=== PATIENT | female | born 1925 | race Caucasian/White ===

== ENCOUNTER 2017-06-18 11:52 | Inpatient (IN) ==
--- NOTE | 2017-06-18 17:15 | Internal Med History&Physical ---
Date of Encounter: 06/18/17 Time of Encounter: 16:48 Assessment and Plan (1) Atrial flutter with rapid ventricular response Current visit: No Status: Acute Ratet now well controlled we will resume current medication (2) Hospital-acquired pneumonia Current visit: No Status: Acute [facility] pneumonia we will continue triple antibiotic vancomycin cefepime and Levaquin will obtain CT of the chest without contrast stress to comfirmm pneumonia and the extent (3) Urinary tract infection Current visit: No Status: Acute Patient was on Rocephin should be adequate treatment at this time Qualifiers: Urinary tract infection type: acute cystitis Hematuria presence: without hematuria Qualified Code(s): N30.00 - Acute cystitis without hematuria (4) Chronic anticoagulation Current visit: No Status: Chronic Patient long-term hums or after (5) Hypertension Current visit: No Status: Chronic Chronic continue current medication Qualifiers: Hypertension type: essential hypertension Qualified Code(s): I10 - Essential (primary) hypertension Internal Medicine - H&P: HPI Chief complaint: transfer from [place] Admitted From: Hospital to Hospital Transfer Plans for Post Hospital Care: Home History of present illness: Ms. Robison is a 89 year old female Patient transfer from [place] due to somnolence and possible pneumonia. Patient with history of hypertension, atrial fibrillation, on anticoagulation was a right total, mild dementia, colon cancer, high cholesterol and high. Patient was admitted there June 16 due to UTI dehydration and lethargy overnight patient developed atrial fibrillation with RVR started on Cardizem drip rate became controlled but continued to be somnolent today she had a temperature 101.3 and hypoxic chest x ray is suggestive of pneumonia patient was then started on cefepime and vancomycin and Levaquin for hospital-acquired pneumonia and then transferred here on arrival Family patient says is more awake and able to respond and answer questions the family patient looks better. 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 for several years no active wheezing Past Med Surg Social Fam HX - Past Medical History Medical history: atrial fibrillation, cancer, dementia, hyperlipidemia, hypertension, other Psychiatric history: depression, other - Past Surgical History Surgical History: appendectomy, colectomy, herniorrhaphy, hysterectomy, orthopedic, other - Social History Smoking Status: Never smoker Smokeless Tobacco Status: No Alcohol use: occasionally Drug use: none - Family History Daughter Living Status: Still Living Hx Family Cardiac Disorders: (unknown) Hx Family Respiratory Disorders: (unknown) Hx Family Cancer: (unknown) Hx Family GI Disorders: (unknown) Hx Family Endocrine Disorder: (unknown) Hx Family Neuromuscular Disorders: (unknown) Hx Family Neurologic Disorders: (unknown) Hx Family HEENT Disorders: (unknown) Hx Family Autoimmune Disorders: (unknown) Internal Medicine - H&P: Meds Aspirin [Lo-Dose Aspirin EC] 81 mg PO DAILY 12/06/15 [History] Atorvastatin [Lipitor] 80 mg PO HS 12/06/15 [History] Citalopram [CeleXA] 20 mg PO DAILY 12/06/15 [History] Multivitamin [Multivitamins] 1 each PO DAILY 12/06/15 [History] Rivaroxaban [Xarelto] 20 mg PO DAILY 12/06/15 [History] Donepezil [Aricept] 5 mg PO HS 12/27/16 [History] Omeprazole [PriLOSEC] 40 mg PO DAILY 06/16/17 [History] Acetaminophen [Tylenol] 650 mg PO Q4HR PRN tablet 06/18/17 [Rx] Cefepime HCl [Maxipime] 2,000 mg IVP Q12H vial 06/18/17 [Rx] Diltiazem CD (24hr) [Cardizem CD] 240 mg PO DAILY cap.er.24h 06/18/17 [Rx] Levofloxacin 750 MG/150 ML [Levaquin Premix 750mg/150 mL] 750 mg IVPB DAILY #1 bag 06/18/17 [Rx] Metoprolol XL (24 HR) Succ [Toprol Xl] 25 mg PO DAILY tab.er.24h 06/18/17 [Rx] Vancomycin [Vancocin] 1,000 mg IVPB Q24H vial 06/18/17 [Rx] 3 Allergy/AdvReac Type Severity Reaction Status Date / Time celecoxib [From Celebrex] Allergy See Verified 01/30/17 01:45 Comments methocarbamol [From Robaxin] Allergy See Verified 01/30/17 01:45 Comments Tetanus Vaccines and Toxoid Allergy Anaphylaxis Verified 01/30/17 01:45 [Tetanus Vaccines & Toxoid] morphine AdvReac Confusion Verified 01/30/17 01:45 All Systems PM: A 10-system review of systems was performed and is negative for pertinent findings except as documented above in the HPI. - Constitutional Constitutional: fatigue, lethargy - EENT Eyes: no change in vision, no discharge, no pain, no photophobia Ears: no ear discharge, no ear pain, no tinnitus Nose, mouth and throat: no dysphagia, no nasal discharge, no neck pain, no sore throat - Cardiovascular Cardiovascular ROS IM: as per HPI, irregular heart rhythm, no chest pain, no diaphoresis, no dyspnea, no lightheadedness, no palpitations, no syncope - Respiratory Respiratory: no cough, no dyspnea, no wheezing, no excessive phlegm production - Gastrointestinal Gastrointestinal: no abdominal pain, no diarrhea, no hematemesis, no hematochezia, no melena, no nausea, no vomiting - Genitourinary Genitourinary: no change in urinary stream, no dysuria, no flank pain, no hematuria - Constitutional Vitals: Temp Pulse Resp BP Pulse Ox 97.6 F 78 16 157/81 93 06/18/17 16:15 06/18/17 16:15 06/18/17 16:15 06/18/17 16:15 06/18/17 16:15 - Eye Eye exam: Present: PERRL, conjuntiva pink, sclera anicteric Pupils: Present: PERRL - Respiratory Respiratory exam: Present: decreased breath sounds, prolonged expiratory phase - Cardiovascular Cardiovascular exam: Present: irregular rhythm, systolic murmur - GI/Abdominal GI/Abdominal exam: Present: normal bowel sounds, soft, no peritoneal signs. Absent: distended, tenderness - Extremities Exam Extremities exam: Present: warm, radial pulses palpable and symmetrical. Absent : calf tenderness, cyanotic, pedal edema
[2017-06-18] MEDS ORDERED: Naloxone 0.4 MG/ML INJ IVP PRN (17:23)
[2017-06-18] MEDS ORDERED: Acetaminophen 325 MG TABLET PO PRN (17:26)
[2017-06-18] MEDS ORDERED: Vancomycin 1,000 MG VIAL IVPB SCH (18:00)
[2017-06-18] MEDS: Cefepime HCl 2,000 MG in Water for inj. (sterile) 20 ML IVP SCH (20:26)
[2017-06-18] MEDS: Acetaminophen 325 MG TABLET PO PRN (20:51)
[2017-06-19 00:27] LABS: Hematocrit 35.7 % (35.3-44.9); Hemoglobin 11.6 g/dL (11.5-15.4); Mean Corpuscular HGB Conc 32.5 g/dL (31.6-35.5); Mean Corpuscular Hemoglobin 29.4 pg (28.0-33.3); Mean Corpuscular Volume 90.4 fL (83.0-100.0); Mean Platelet Volume 9.4 fL (9.4-12.4); Platelet Count 215 K/mcL (140-400); Red Blood Count 3.95 M/mcL (3.82-4.97); Red Cell Distribution Width 14.2 % (11.5-14.5)
[2017-06-19 01:12] LABS: Alanine Aminotransferase 14 Units/L (7-52); Albumin 3.1 g/dL (3.5-5.7); Albumin/Globulin Ratio 1.2 (1.1-2.2); Alkaline Phosphatase 71 Units/L (34-104); Aspartate Amino Transferase 24 Units/L (13-39); BUN/Creatinine Ratio 10 (6-26); Bilirubin,Total 0.6 mg/dL (0.3-1.0); Blood Urea Nitrogen 7 mg/dL (8-23); Calcium 8.7 mg/dL (8.6-10.3); Carbon Dioxide 20 mEq/L (23-29); Chloride 103 mEq/L (98-107); Globulin 2.5 g/dL (2.4-3.5); Glucose 87 mg/dL (70-105); Magnesium 1.1 mg/dL (1.6-2.6); Osmolality,Calculated 271 (280-300); Potassium 3.4 mEq/L (3.5-5.1); Sodium 132 mEq/L (136-145); Total Protein 5.6 g/dL (6.4-8.9); eGFR For African Americans > 60 (> 60); eGFR For Non-African Americans > 60 (> 60)
[2017-06-19] MEDS: Cefepime HCl 2,000 MG in Water for inj. (sterile) 20 ML IVP SCH ×2 (05:04→18:25)
[2017-06-19] MEDS: Multivit/Ca/Min/Fe/FA 1 TAB TABLET PO SCH (07:31)
[2017-06-19] MEDS: Metoprolol XL (24 HR) Succ 25 MG TAB.ER.24H PO SCH (07:32)
[2017-06-19] MEDS: Aspirin Enteric Coated 81 MG Tablet PO SCH (07:32)
[2017-06-19] MEDS: Diltiazem CD (24hr) 240 MG CAPSULE PO SCH (07:32)
[2017-06-19] MEDS ORDERED: NON-FORMULARY MEDICATION 1 EACH EACH (Levofloxacin 750 Mg/150 Ml 750 MG) IVPB SCH (09:00)
[2017-06-19] MEDS ORDERED: Ciprofloxacin OPTH Soln 2.5 ML BOTTLE RIGHT EYE SCH (12:00)
[2017-06-19] MEDS: Ciprofloxacin OPTH Soln 2.5 ML BOTTLE BOTH EYES SCH ×3 (12:38→23:40)
[2017-06-19] MEDS: Acetaminophen 325 MG TABLET PO PRN (12:39)
[2017-06-19] MEDS: Vancomycin 1,000 MG in D5% in Water 250 ML IVPB SCH (12:40)
--- NOTE | 2017-06-19 18:20 | Internal Med Progress Note ---
Date of Encounter: 06/19/17 Time of Encounter: 18:18 - Assessment and plan (1) Sepsis Current Visit: Yes Status: Acute Assessment and plan: Likely UTI and HCAP Presented with SIRS criteria positive for fever and tachycardia. Currently normal HR, afebrile Continue Vancomycin, cefepime, levaquin Follow-up blood cultures. Patient not requiring fluids currently. Qualifiers: Sepsis type: sepsis due to unspecified organism Qualified Code(s): A41.9 - Sepsis, unspecified organism (2) Atrial flutter with rapid ventricular response Current Visit: No Status: Acute Assessment and plan: Likely secondary to sepsis. Rate now controlled Continue Cardizem (3) Hospital-acquired pneumonia Current Visit: No Status: Acute Assessment and plan: as above (4) Urinary tract infection Current Visit: No Status: Acute Assessment and plan: as above Qualifiers: Urinary tract infection type: acute cystitis Hematuria presence: without hematuria Qualified Code(s): N30.00 - Acute cystitis without hematuria (5) Chronic anticoagulation Current Visit: No Status: Chronic (6) Hypertension Current Visit: No Status: Chronic Qualifiers: Hypertension type: essential hypertension Qualified Code(s): I10 - Essential (primary) hypertension - Subjective Interval history: No acute issues, patient has no complaints. Daughter at bedside. - Constitutional Vitals: Temp Pulse Resp BP Pulse Ox 97.8 F 75 17 147/82 97 06/19/17 07:11 06/19/17 07:11 06/19/17 07:11 06/19/17 07:11 06/19/17 07:11 General appearance: Present: A&O X 1 Exam: - Eye Eye exam: Present: PERRL, conjuntiva pink, sclera anicteric Pupils: Present: PERRL - Respiratory Respiratory exam: Present: decreased breath sounds, prolonged expiratory phase - Cardiovascular Cardiovascular exam: Present: irregular rhythm, systolic murmur - GI/Abdominal GI/Abdominal exam: Present: normal bowel sounds, soft, no peritoneal signs. Absent: distended, tenderness - Extremities Exam Extremities exam: Present: warm, radial pulses palpable and symmetrical. Absent : calf tenderness, cyanotic, pedal edema Internal Medicine: Result - Labs CBC & Chem 7: 06/19/17 00:17 06/19/17 00:17 Labs: Short CBC 06/19/17 Range/Units 00:17 WBC 6.0 (4.3-11.1) K/mcL Hgb 11.6 (11.5-15.4) g/dL Hct 35.7 (35.3-44.9) % Plt Count 215 (140-400) K/mcL BMP 06/19/17 00:17 Sodium 132 L Potassium 3.4 L Chloride 103 Carbon Dioxide 20 L BUN 7 L Creatinine 0.70 Glucose 87 Calcium 8.7 Cardiac Enzymes 06/18/17 06/19/17 06/19/17 Range/Units 17:58 00:17 06:08 Troponin I 0.03 0.03 0.03 (< 0.04) ng/mL Liver Function 06/19/17 Range/Units 00:17 Total Bilirubin 0.6 (0.3-1.0) mg/dL AST 24 (13-39) Units/L ALT 14 (7-52) Units/L Alkaline Phosphatase 71 (34-104) Units/L Albumin 3.1 L (3.5-5.7) g/dL - Impressions Impressions Chest CT 06/18/17 17:27 IMPRESSION: 1. Small moderate right and small left pleural effusions. There is adjacent airspace disease, at least partially passive atelectasis, but a component of pneumonia is considered as well. 2. There is mild interlobular septal thickening, and therefore a component of interstitial edema is also likely. D/ / Bert Catherine MD / Bert Catherine MD Interpreting Provider: Bert Catherine MD Consult Discharge Plan - Plan Referrals: Aamir Escobedo MD [Primary Care Provider] -
[2017-06-19] MEDS: *HR* Rivaroxaban 15 MG TABLET PO SCH (18:26)
[2017-06-20] MEDS: Cefepime HCl 2,000 MG in Water for inj. (sterile) 20 ML IVP SCH ×2 (05:23→17:12)
[2017-06-20] MEDS: Ciprofloxacin OPTH Soln 2.5 ML BOTTLE BOTH EYES SCH ×4 (05:23→23:33)
[2017-06-20 06:48] LABS: Basophils # 0.1 K/mcL (0.0-0.2); Basophils % 1.1 %; Eosinophils # 0.2 K/mcL (0.0-0.6); Eosinophils % 2.7 %; Hematocrit 35.3 % (35.3-44.9); Hemoglobin 11.3 g/dL (11.5-15.4); Immature Granulocytes % 0.4 % (0-4); Lymphocytes # 1.4 K/mcL (0.6-4.6); Lymphocytes % 25.2 %; Mean Corpuscular Hemoglobin 28.7 pg (28.0-33.3); Mean Corpuscular Volume 89.6 fL (83.0-100.0); Mean Platelet Volume 10.2 fL (9.4-12.4); Monocytes # 0.4 K/mcL (0.0-1.3); Monocytes % 7.9 %; Neutrophils # 3.5 K/mcL (1.6-8.9); Platelet Count 275 K/mcL (140-400); Red Blood Count 3.94 M/mcL (3.82-4.97); Red Cell Distribution Width 14.5 % (11.5-14.5); Segmented Neutrophils % 62.7 %
[2017-06-20 07:09] LABS: BUN/Creatinine Ratio 12 (6-26); Blood Urea Nitrogen 10 mg/dL (8-23); Calcium 8.9 mg/dL (8.6-10.3); Carbon Dioxide 17 mEq/L (23-29); Chloride 104 mEq/L (98-107); Glucose 82 mg/dL (70-105); Osmolality,Calculated 274 (280-300); Potassium 3.8 mEq/L (3.5-5.1); Sodium 133 mEq/L (136-145); eGFR For African Americans > 60 (> 60); eGFR For Non-African Americans > 60 (> 60)
[2017-06-20] MEDS ORDERED: Levofloxacin 750 MG/150 ML 750 MG/150 ML BAG IVPB SCH (09:00)
[2017-06-20] MEDS: Diltiazem CD (24hr) 240 MG CAPSULE PO SCH (09:40)
[2017-06-20] MEDS: Metoprolol XL (24 HR) Succ 25 MG TAB.ER.24H PO SCH (09:40)
[2017-06-20] MEDS: Aspirin Enteric Coated 81 MG Tablet PO SCH (11:00)
[2017-06-20] MEDS: Multivit/Ca/Min/Fe/FA 1 TAB TABLET PO SCH (11:00)
[2017-06-20] MEDS ORDERED: Furosemide 20 MG/2 ML VIAL IVP ONE (11:32)
[2017-06-20] MEDS: Vancomycin 1,000 MG in D5% in Water 250 ML IVPB SCH (11:55)
[2017-06-20] MEDS: Acetaminophen 325 MG TABLET PO PRN (13:41)
--- NOTE | 2017-06-20 14:13 | Internal Med Progress Note ---
Date of Encounter: 06/20/17 Time of Encounter: 14:11 - Assessment and plan (1) Sepsis Current Visit: Yes Status: Acute Assessment and plan: Likely UTI and HCAP Presented with SIRS criteria positive for fever and tachycardia. Currently normal HR, afebrile Continue Vancomycin, cefepime, levaquin Follow-up blood cultures. Patient not requiring fluids currently. Fever and Tachycardia resolved. Patient fluid overloaded, will diurese with IV lasix and monitor urine output Qualifiers: Sepsis type: sepsis due to unspecified organism Qualified Code(s): A41.9 - Sepsis, unspecified organism (2) Atrial flutter with rapid ventricular response Current Visit: No Status: Acute Assessment and plan: Likely secondary to sepsis. Rate now controlled Continue Cardizem (3) Hospital-acquired pneumonia Current Visit: No Status: Acute Assessment and plan: as above (4) Urinary tract infection Current Visit: No Status: Acute Assessment and plan: as above Qualifiers: Urinary tract infection type: acute cystitis Hematuria presence: without hematuria Qualified Code(s): N30.00 - Acute cystitis without hematuria (5) Chronic anticoagulation Current Visit: No Status: Chronic Assessment and plan: On Xarelto (6) Hypertension Current Visit: No Status: Chronic Qualifiers: Hypertension type: essential hypertension Qualified Code(s): I10 - Essential (primary) hypertension - Subjective Interval history: No acute issues, patient has no complaints. Daughter terrell Hercules is at bedside. - Constitutional Vitals: Temp Pulse Resp BP Pulse Ox 99.8 F H 107 18 137/61 24 06/20/17 13:50 06/20/17 13:50 06/20/17 13:50 06/20/17 13:50 06/20/17 13:50 Exam: General appearance: Present: A&O X 1 Exam: - Eye Eye exam: Present: PERRL, conjuntiva pink, sclera anicteric Pupils: Present: PERRL - Respiratory Respiratory exam: Present: decreased breath sounds, prolonged expiratory phase - Cardiovascular Cardiovascular exam: Present: irregular rhythm, systolic murmur - GI/Abdominal GI/Abdominal exam: Present: normal bowel sounds, soft, no peritoneal signs. Absent: distended, tenderness - Extremities Exam Extremities exam: Present: warm, radial pulses palpable and symmetrical. Absent : calf tenderness, cyanotic, pedal edema Internal Medicine: Result - Labs CBC & Chem 7: 0203/18 06:17 06/20/17 06:17 Labs: Short CBC 06/20/17 Range/Units 06:17 WBC 5.6 (4.3-11.1) K/mcL Hgb 11.3 L (11.5-15.4) g/dL Hct 35.3 (35.3-44.9) % Plt Count 275 (140-400) K/mcL Neutrophils # 3.5 (1.6-8.9) K/mcL BMP 06/20/17 06:17 Sodium 133 L Potassium 3.8 Chloride 104 Carbon Dioxide 17 L BUN 10 Creatinine 0.81 Glucose 82 Calcium 8.9 Consult Discharge Plan - Plan Referrals: Aamir Escobedo MD [Primary Care Provider] -
[2017-06-20] MEDS: *HR* Rivaroxaban 15 MG TABLET PO SCH (17:12)
[2017-06-20 18:18] LABS: Basophils # 0.1 K/mcL (0.0-0.2); Basophils % 1.1 %; Eosinophils # 0.1 K/mcL (0.0-0.6); Eosinophils % 1.8 %; Hematocrit 36.4 % (35.3-44.9); Hemoglobin 11.7 g/dL (11.5-15.4); Immature Granulocytes % 0.3 % (0-4); Lymphocytes # 1.3 K/mcL (0.6-4.6); Lymphocytes % 20.9 %; Mean Corpuscular HGB Conc 32.1 g/dL (31.6-35.5); Mean Corpuscular Hemoglobin 28.5 pg (28.0-33.3); Mean Corpuscular Volume 88.6 fL (83.0-100.0); Mean Platelet Volume 9.9 fL (9.4-12.4); Monocytes # 0.5 K/mcL (0.0-1.3); Monocytes % 8.6 %; Neutrophils # 4.2 K/mcL (1.6-8.9); Platelet Count 286 K/mcL (140-400); Red Blood Count 4.11 M/mcL (3.82-4.97); Red Cell Distribution Width 14.6 % (11.5-14.5); Segmented Neutrophils % 67.3 %
[2017-06-20 18:47] LABS: Potassium 3.8 mEq/L (3.5-5.1)
[2017-06-20] MEDS ORDERED: 0.9 % Sodium Chloride 1,000 ML IVC SCH (19:00)
--- NOTE | 2017-06-20 22:31 | Event Note ---
Date of Encounter: 06/20/17 Time of Encounter: 20:40 Called by pts. nurse to 2A51 d/t code status change conversation w/pts. daughters. Patient has had declining mental status over the past several days with worsening AMS today according to pts. daughters. 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 Pts. daughters are unaware of fall causing head trauma to cause edema/hemorrhage. Pt. does not speak and does not recognize daughters in her presence. Responds/shows alarm to loud noises that occur from the hallway. Discussion w/pts. two daughters (joint POAs ) regarding code status change and their wishes for further imaging (MRI of head ) and/or possible transfer of pt. to larger facility for neurological work-up and possible surgical intervention. Daughters stated they want their mother to be made comfortable w/no extraordinary measures. DNRCCA versus DNRCC explained to both and they both voiced understanding and confirmed their wishes of code status change to DNRCC. Pts. daughters wish Palliative Care to take over their mother's care. Palliative Care consult ordered and pts. code status changed to DNRCC at 22:17.
[2017-06-21 06:15] LABS: Basophils # 0.1 K/mcL (0.0-0.2); Basophils % 1.1 %; Eosinophils # 0.1 K/mcL (0.0-0.6); Eosinophils % 1.8 %; Hematocrit 33.3 % (35.3-44.9); Hemoglobin 10.4 g/dL (11.5-15.4); Immature Granulocytes % 0.2 % (0-4); Lymphocytes # 1.3 K/mcL (0.6-4.6); Lymphocytes % 23.6 %; Mean Corpuscular HGB Conc 31.2 g/dL (31.6-35.5); Mean Corpuscular Hemoglobin 28.1 pg (28.0-33.3); Mean Platelet Volume 10.4 fL (9.4-12.4); Monocytes # 0.5 K/mcL (0.0-1.3); Neutrophils # 3.7 K/mcL (1.6-8.9); Platelet Count 264 K/mcL (140-400); Red Cell Distribution Width 14.6 % (11.5-14.5); Segmented Neutrophils % 64.3 %
[2017-06-21] MEDS: Cefepime HCl 2,000 MG in Water for inj. (sterile) 20 ML IVP SCH (06:28)
[2017-06-21] MEDS: Ciprofloxacin OPTH Soln 2.5 ML BOTTLE BOTH EYES SCH ×4 (06:29→23:30)
[2017-06-21 06:31] LABS: Calcium 8.7 mg/dL (8.6-10.3); Potassium 3.9 mEq/L (3.5-5.1)
--- NOTE | 2017-06-21 07:43 | Palliative - Consult Note ---
Date of Encounter: 06/21/17 Time of Encounter: 07:35 - Assessment and Plan (1) CVA (cerebral vascular accident) Current Visit: Yes Status: Acute Assessment and plan: CT scan shows collections of fluid whic are epidural in nature. Is no trauma to accountfor this. There was a CT scan done in [place] which did not show anything per the family no agressive hterapy is desired for this will watch Qualifiers: CVA mechanism: unspecified Qualified Code(s): I63.9 - Cerebral infarction, unspecified (2) Mental status alteration Current Visit: Yes Status: Acute Assessment and plan: The this to be a delirium it is multifocal including exercise as well as central nervous system disturbance as noted on the CT scan. Opted against any intervention, I am waiting to discuss with them. We will start the patient on milligrams Ativan when necessary every couple of hours and 2.5 mg oxycodone every 4 hours as the patient startle reflex may very well be secondary to pain. I did notice a tolerance to morphine the "causes confusion" as the patient is already massively confused I do not believe a small dose of oxycodone will make any significant difference to this. I believe the Ativan will probably be more effective. Will discuss further with family when they are available. Qualifiers: Altered mental status type: delirium Qualified Code(s): R41.0 - Disorientation, unspecified (3) Urinary tract infection Current Visit: No Status: Acute Assessment and plan: hsopitalist b [place] mostly infectious is sthe factors that account for the change in mental staus plan to cont present therapy Qualifiers: Urinary tract infection type: acute cystitis Hematuria presence: without hematuria Qualified Code(s): N30.00 - Acute cystitis without hematuria (4) Atrial flutter with rapid ventricular response Current Visit: No Status: Acute Assessment and plan: plan per hospitalist team (5) Hospital-acquired pneumonia Current Visit: No Status: Acute Assessment and plan: continue antibiotics for a couple of more days plan per hsopitalist team Palliative-CN HPI - Data of Consult Requesting Physician: Xiao Nelson MD Primary Care Provider: Aamir Escobedo MD - Consult Narrative History of present illness: Ms. Robison is a 89 year old female Nonverbal at this time no family is present currently history is from the medical record. Patient was admitted for hospital-acquired pneumonia and UTI with sirs criteria being met. Patient transfer from [place] due to somnolence and possible pneumonia. Patient with history of hypertension, atrial fibrillation, on anticoagulation was a right total, mild dementia, colon cancer, high cholesterol and high. Patient was admitted there June 16 due to UTI dehydration and lethargy overnight patient developed atrial fibrillation with RVR started on Cardizem drip rate became controlled but continued to be somnolent today she had a temperature 101.3 and hypoxic chest x ray is suggestive of pneumonia patient was then started on cefepime and vancomycin and Levaquin for hospital-acquired pneumonia and then transferred here on arrival F Per the request for palliative consultation during the night last night patient had had a change in a declining mental status. CT scan showed the focal subgaleal edema versus hemorrhage with patchy areas of small vessel ischemic change. He was unaware of any possible fall that might of caused head trauma. He was very sensitive to any kind of loud noises in the hallway. Discussion regarding transfer larger facility and workup for possible surgical intervention family decided against all this wishes to have palliative care involved for her care only. We will talk to family when they are available. CC: Xiao Nelson MD Past Med Surg Social Fam HX - Past Medical History Medical history: atrial fibrillation, cancer, dementia, hyperlipidemia, hypertension, other Psychiatric history: depression, other - Past Surgical History Surgical History: appendectomy, colectomy, herniorrhaphy, hysterectomy, orthopedic, other - Social History Smoking Status: Never smoker Smokeless Tobacco Status: No Alcohol use: occasionally Drug use: none - Family History Daughter Living Status: Still Living Hx Family Cardiac Disorders: (unknown) Hx Family Respiratory Disorders: (unknown) Hx Family Cancer: (unknown) Hx Family GI Disorders: (unknown) Hx Family Endocrine Disorder: (unknown) Hx Family Neuromuscular Disorders: (unknown) Hx Family Neurologic Disorders: (unknown) Hx Family HEENT Disorders: (unknown) Hx Family Autoimmune Disorders: (unknown) Medications and Allergies Aspirin [Lo-Dose Aspirin EC] 81 mg PO DAILY 12/06/15 [History] Atorvastatin [Lipitor] 80 mg PO HS 12/06/15 [History] Citalopram [CeleXA] 20 mg PO DAILY 12/06/15 [History] Multivitamin [Multivitamins] 1 each PO DAILY 12/06/15 [History] Rivaroxaban [Xarelto] 20 mg PO DAILY 12/06/15 [History] Donepezil [Aricept] 5 mg PO HS 12/27/16 [History] Omeprazole [PriLOSEC] 40 mg PO DAILY 06/16/17 [History] Acetaminophen [Tylenol] 650 mg PO Q4HR PRN tablet 06/18/17 [Rx] Cefepime HCl [Maxipime] 2,000 mg IVP Q12H vial 06/18/17 [Rx] Levofloxacin 750 MG/150 ML [Levaquin Premix 750mg/150 mL] 750 mg IVPB DAILY #1 bag 06/18/17 [Rx] Metoprolol XL (24 HR) Succ [Toprol Xl] 25 mg PO DAILY tab.er.24h 06/18/17 [Rx] Vancomycin [Vancocin] 1,000 mg IVPB Q24H vial 06/18/17 [Rx] Diltiazem CD (24hr) [Cardizem CD] 180 mg PO BID 06/19/17 [History] Lisinopril [Zestril] 10 mg PO DAILY 06/19/17 [History] hydroCHLOROthiazide [Hydrochlorothiazide] 1 tab PO DAILY 06/19/17 [History] 3 Allergy/AdvReac Type Severity Reaction Status Date / Time celecoxib [From Celebrex] Allergy See Verified 01/30/17 01:45 Comments methocarbamol [From Robaxin] Allergy See Verified 01/30/17 01:45 Comments Tetanus Vaccines and Toxoid Allergy Anaphylaxis Verified 01/30/17 01:45 [Tetanus Vaccines & Toxoid] morphine AdvReac Confusion Verified 01/30/17 01:45 ROS unobtainable: due to mental status Palliative Care-Exam - Constitutional Vitals: Temp Pulse Resp BP Pulse Ox 100.7 F H 98 20 109/84 93 06/20/17 23:56 06/20/17 23:56 06/20/17 23:56 06/20/17 23:56 06/20/17 23:56 General appearance: Present: mild distress (Easily startled) - Head Head Exam: Present: atraumatic, normal inspection - Eye Eye exam: Present: normal appearance - Respiratory Respiratory exam: Present: decreased breath sounds - Cardiovascular Cardiovascular exam: Present: irregular rhythm - GI/Abdominal Exam GI/Abdominal exam: Present: normal bowel sounds, soft. Absent: tenderness - Extremities Exam Extremities exam: Present: normal inspection. Absent: pedal edema, tenderness - Neurological Exam Neurological exam: Present: altered - Psychiatric Psychiatric exam: Present: agitated, anxious - Skin Skin exam: Present: dry, warm Internal Medicine - CN: Reslt - Labs CBC & Chem 7: 06/21/17 05:40 06/21/17 05:40 Labs: Short CBC 06/20/17 06/21/17 Range/Units 18:05 05:40 WBC 6.3 5.7 (4.3-11.1) K/mcL Hgb 11.7 10.4 L (11.5-15.4) g/dL Hct 36.4 33.3 L (35.3-44.9) % Plt Count 286 264 (140-400) K/mcL Neutrophils # 4.2 3.7 (1.6-8.9) K/mcL BMP 06/20/17 06/21/17 18:05 05:40 Sodium 134 L 138 Potassium 3.8 3.9 Chloride 103 108 H Carbon Dioxide 21 L 17 L BUN 15 17 Creatinine 1.45 H 1.44 H Glucose 106 H 93 Calcium 9.0 8.7 Cardiac Enzymes 06/20/17 Range/Units 18:05 Troponin I 0.04 H* (< 0.04) ng/mL - Impressions Impressions Head CT 06/20/17 17:37 IMPRESSION: Multifocal subgaleal edema versus hemorrhage is noted Patchy areas of small vessel ischemic change bilaterally 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 D/ / Jose Alejandro Luna / Jose Alejandro Luna Interpreting Provider: Jose Alejandro Luna Consult Discharge Plan - Plan Referrals: Aamir Escobedo MD [Primary Care Provider] - Palliative Quality Palliative Quality: Screen for Code Status: Yes, Screen for Goals of Care: Yes, Screen for Pain: Yes, If Pain Regimen Started, Initiate Bowel Regimen: Yes, Screen for Nausea/Vomitting: Yes Code Status: 06/18/17 17:23 Resuscitation Status: Active [RES] Routine Comment: Resuscitation Status: Full Code 06/20/17 22:17 DNR [Resuscitation Status: Active] [RES] Routine Comment: Resuscitation Status: DNR-Comfort Care
[2017-06-21] MEDS ORDERED: OxyCODONE CONC 5 MG/0.25 ML ORAL.SYG PO PRN (08:03)
[2017-06-21] MEDS ORDERED: OxyCODONE CONC 5 MG/0.25 ML ORAL.SYG SL PRN (08:06)
[2017-06-21] MEDS: Diltiazem CD (24hr) 240 MG CAPSULE PO SCH (08:29)
[2017-06-21] MEDS: Multivit/Ca/Min/Fe/FA 1 TAB TABLET PO SCH (08:29)
[2017-06-21] MEDS: Metoprolol XL (24 HR) Succ 25 MG TAB.ER.24H PO SCH (08:29)
[2017-06-21] MEDS: *HR* LORazepam 2 MG/ML VIAL IVP PRN ×2 (08:33→11:51)
[2017-06-21] MEDS ORDERED: Aminoglycoside Consult 1 EACH MC ONE (09:15)
[2017-06-21] MEDS ORDERED: Acetaminophen 650 MG RECTAL SUPP RC PRN (10:50)
[2017-06-21] MEDS ORDERED: Acetaminophen IV 1,000 MG/100 ML INFUS..BTL IVPB ONE (11:13)
[2017-06-21] MEDS: *HR* Metoprolol 5 MG/5 ML VIAL IVP PRN ×2 (11:19→20:12)
[2017-06-21] MEDS ORDERED: Azithromycin 500 MG in D5% in Water 250 ML IVPB SCH (12:00)
[2017-06-21] MEDS: Vancomycin 1,000 MG in D5% in Water 250 ML IVPB SCH (12:54)
--- NOTE | 2017-06-21 13:36 | Internal Med Progress Note ---
Date of Encounter: 06/21/17 Time of Encounter: 13:32 - Assessment and plan (1) Sepsis Current Visit: Yes Status: Acute Assessment and plan: Likely UTI and HCAP Presented with SIRS criteria positive for fever and tachycardia. Currently normal HR, afebrile Continue Vancomycin, cefepime, levaquin Follow-up blood cultures. Patient not requiring fluids currently. Fever and Tachycardia resolved. Patient fluid overloaded, will diurese with IV lasix and monitor urine output 06/21 13:[address] head findings with radiologist today over the phone. There is good change the subgleal edema vs hemorrhage is artifact, which would be more consistent with patient's history. Qualifiers: Sepsis type: sepsis due to unspecified organism Qualified Code(s): A41.9 - Sepsis, unspecified organism (2) Atrial flutter with rapid ventricular response Current Visit: No Status: Acute Assessment and plan: Likely secondary to sepsis. Returned today with HR in 130s. Possibly worsening sepsis vs missing Cardizem dose (unable to tolerate orals because of mental status) - Add Lopressor 5 mg IV Q6H prn tachycardia. - Continue Cardizem once patient if tolerate PO (3) Hospital-acquired pneumonia Current Visit: No Status: Acute Assessment and plan: as above (4) Urinary tract infection Current Visit: No Status: Acute Assessment and plan: as above Qualifiers: Urinary tract infection type: acute cystitis Hematuria presence: without hematuria Qualified Code(s): N30.00 - Acute cystitis without hematuria (5) Chronic anticoagulation Current Visit: No Status: Chronic Assessment and plan: On Xarelto (6) Hypertension Current Visit: No Status: Chronic Qualifiers: Hypertension type: essential hypertension Qualified Code(s): I10 - Essential (primary) hypertension - Subjective Interval history: Patient had change in behavior yesterday with apperant agitation and less responsive to her daughters and overall daughters felt that is she is not acting right. Workup yesterday included a repeat CT head that showed multifocal subgaleal edema versus hemorrhage. Today I discussed with radiology that this is benign findings and likely artifact. No intracranial bleed. She had rigors this morning with generalized discomfort. - Constitutional Vitals: Temp Pulse Resp BP Pulse Ox 101 F H 132 26 119/80 93 06/21/17 12:51 06/21/17 11:16 06/21/17 11:16 06/21/17 11:16 06/21/17 11:16 General appearance: Present: A&O X 1 Exam: - Eye Eye exam: Present: PERRL, conjuntiva pink, sclera anicteric Pupils: Present: PERRL - Respiratory Respiratory exam: Present: decreased breath sounds, prolonged expiratory phase - Cardiovascular Cardiovascular exam: Present: irregular rhythm, systolic murmur - GI/Abdominal GI/Abdominal exam: Present: normal bowel sounds, soft, no peritoneal signs. Absent: distended, tenderness - Extremities Exam Extremities exam: Present: warm, radial pulses palpable and symmetrical. Absent : calf tenderness, cyanotic, pedal edema Internal Medicine: Result - Labs CBC & Chem 7: 06/21/17 05:40 06/21/17 05:40 Labs: Short CBC 06/20/17 06/21/17 Range/Units 18:05 05:40 WBC 6.3 5.7 (4.3-11.1) K/mcL Hgb 11.7 10.4 L (11.5-15.4) g/dL Hct 36.4 33.3 L (35.3-44.9) % Plt Count 286 264 (140-400) K/mcL Neutrophils # 4.2 3.7 (1.6-8.9) K/mcL BMP 06/20/17 06/21/17 18:05 05:40 Sodium 134 L 138 Potassium 3.8 3.9 Chloride 103 108 H Carbon Dioxide 21 L 17 L BUN 15 17 Creatinine 1.45 H 1.44 H Glucose 106 H 93 Calcium 9.0 8.7 Cardiac Enzymes 06/20/17 Range/Units 18:05 Troponin I 0.04 H* (< 0.04) ng/mL - Impressions Impressions Head CT 06/20/17 17:37 IMPRESSION: Multifocal subgaleal edema versus hemorrhage is noted Patchy areas of small vessel ischemic change bilaterally 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 D/ / Jose Alejandro uLna / Jose Alejandro Luna Interpreting Provider: Jose Alejandro Luna Consult Discharge Plan - Plan Referrals: Aamir Escobedo MD [Primary Care Provider] -
[2017-06-22] MEDS: *HR* LORazepam 2 MG/ML VIAL IVP PRN ×2 (01:44→08:38)
[2017-06-22] MEDS ORDERED: Cefepime HCl 2,000 MG in Water for inj. (sterile) 20 ML IVP SCH ×2 (06:00→08:00)
[2017-06-22 06:01] LABS: Basophils # 0.1 K/mcL (0.0-0.2); Basophils % 0.7 %; Eosinophils % 0.2 %; Hematocrit 35.2 % (35.3-44.9); Hemoglobin 11.2 g/dL (11.5-15.4); Immature Granulocytes % 0.5 % (0-4); Lymphocytes # 1.5 K/mcL (0.6-4.6); Mean Corpuscular HGB Conc 31.8 g/dL (31.6-35.5); Mean Corpuscular Hemoglobin 28.6 pg (28.0-33.3); Mean Corpuscular Volume 89.8 fL (83.0-100.0); Mean Platelet Volume 10.5 fL (9.4-12.4); Monocytes # 0.7 K/mcL (0.0-1.3); Monocytes % 6.6 %; Neutrophils # 7.8 K/mcL (1.6-8.9); Platelet Count 324 K/mcL (140-400); Red Blood Count 3.92 M/mcL (3.82-4.97); Red Cell Distribution Width 14.8 % (11.5-14.5)
[2017-06-22] MEDS: Ciprofloxacin OPTH Soln 2.5 ML BOTTLE BOTH EYES SCH ×3 (06:37→18:20)
[2017-06-22 06:42] LABS: Calcium 8.9 mg/dL (8.6-10.3); Potassium 4.2 mEq/L (3.5-5.1)
[2017-06-22] MEDS ORDERED: 0.9 % Sodium Chloride 1,000 ML IVC SCH (08:00)
[2017-06-22] MEDS ORDERED: Cefepime HCl 2,000 MG in D5% in Water (Mini-Bag+) 100 ML IVPB SCH (08:00)
[2017-06-22] MEDS: Multivit/Ca/Min/Fe/FA 1 TAB TABLET PO SCH (08:35)
[2017-06-22] MEDS: Metoprolol XL (24 HR) Succ 25 MG TAB.ER.24H PO SCH (08:36)
[2017-06-22] MEDS ORDERED: Cefepime HCl 2,000 MG in Water for inj. (sterile) 20 ML 10 ML IVP SCH (08:45)
--- NOTE | 2017-06-22 08:53 | Palliative Progress Note ---
Date of Encounter: 06/22/17 Time of Encounter: 08:50 - Assessment and plan (1) Anxiety Current Visit: Yes Status: Acute Assessment and plan: Patient was started on IV Lorazepam. She has utilized 4 doses over past 24 hours. She does awaken easily and although nonverbal, does appears very anxious. Continue and monitor (2) Generalized pain Current Visit: Yes Status: Acute Assessment and plan: Continue low dose Oxycodone - has utilized x1 last 24 hours. (3) Goals of care, counseling/discussion Current Visit: Yes Status: Acute Assessment and plan: No family here at present. Will continue to follow clinical course. Mental status not improved thus far. (4) Atrial fibrillation with RVR Current Visit: No Status: Inactive (5) Urinary tract infection Current Visit: No Status: Acute Qualifiers: Urinary tract infection type: acute cystitis Hematuria presence: without hematuria Qualified Code(s): N30.00 - Acute cystitis without hematuria - Time Spent With Patient Total time spent is greater than 50% in coordination of care (as documented) at patient's floor/unit and/or counseling patient: 25 - 35 minutes - Subjective Interval history: Patient resting with eyes closed. Awakens with stimulation, but only making unintelligible noises and appears anxious. Does not follow commands. Per nursing, pt has not had oral intake and not able to take oral medications. Remains on Cardizem drip. No family is present - Constitutional Vitals: Abnormal lab results Hgb 11.2 g/dL (11.5-15.4) L 06/22/17 05:44 Hct 35.2 % (35.3-44.9) L 06/22/17 05:44 RDW 14.8 % (11.5-14.5) H 06/22/17 05:44 Carbon Dioxide 19 mEq/L (23-29) L 06/22/17 05:44 Creatinine 1.62 mg/dL (0.60-1.20) H 06/22/17 05:44 Est GFR ( Amer) 36 (> 60) L 06/22/17 05:44 Est GFR (Non-Af Amer) 30 (> 60) L 06/22/17 05:44 POC Glucose 112 (58-89) H 06/20/17 17:50 Magnesium 1.1 mg/dL (1.6-2.6) L 06/19/17 00:17 Troponin I 0.04 ng/mL (< 0.04) H* 06/20/17 18:05 B-Natriuretic Peptide 141 pg/mL (Less than 100) H 06/19/17 00:17 Serum Total Protein 5.6 g/dL (6.4-8.9) L 06/19/17 00:17 Albumin 3.1 g/dL (3.5-5.7) L 06/19/17 00:17 General appearance: Present: mild distress - Respiratory Respiratory exam: Present: decreased breath sounds, CTAB Additional comments: Shallow inspiratory effort - Cardiovascular Cardiovascular exam: Present: irregular rhythm - GI/Abdominal GI/Abdominal exam: Present: normal bowel sounds, soft - Extremities Exam Extremities exam: Present: normal capillary refill, normal inspection Additional comments: Scabbed areas noted right lower arm - Neurological Exam Additional comments: Patient non verbal - make noises when awakened, but does not open eyes for me or follow commands. - Skin Skin exam: Present: dry, pallor, warm Palliative Quality Palliative Quality: Screen for Code Status: Yes, Screen for Goals of Care: Yes, Screen for Pain: Yes, If Pain Regimen Started, Initiate Bowel Regimen: Yes, Screen for Nausea/Vomitting: Yes Code Status: 06/18/17 17:23 Resuscitation Status: Active [RES] Routine Comment: Resuscitation Status: Full Code 06/20/17 22:17 DNR [Resuscitation Status: Active] [RES] Routine Comment: Resuscitation Status: DNR-Comfort Care - Labs CBC & Chem 7: 06/22/17 05:44 06/22/17 05:44 Labs: Laboratory Results - last 24 hr 06/20/17 06/21/17 06/22/17 17:50 12:00 05:44 WBC 10.1 D RBC 3.92 Hgb 11.2 L Hct 35.2 L MCV 89.8 MCH 28.6 MCHC 31.8 RDW 14.8 H Plt Count 324 MPV 10.5 Immature Gran % 0.5 Seg Neutrophils % 77.0 Lymphocytes % 15.0 Monocytes % 6.6 Eosinophils % 0.2 Basophils % 0.7 Neutrophils # 7.8 Lymphocytes # 1.5 Monocytes # 0.7 Eosinophils # 0.0 Basophils # 0.1 Sodium Potassium Chloride Carbon Dioxide BUN Creatinine Est GFR ( Amer) Est GFR (Non-Af Amer) BUN/Creatinine Ratio Glucose POC Glucose 112 H Calculated Osmolality Calcium Vancomycin Trough 13.4 06/22/17 05:44 WBC RBC Hgb Hct MCV MCH MCHC RDW Plt Count MPV Immature Gran % Seg Neutrophils % Lymphocytes % Monocytes % Eosinophils % Basophils % Neutrophils # Lymphocytes # Monocytes # Eosinophils # Basophils # Sodium 137 Potassium 4.2 Chloride 107 Carbon Dioxide 19 L BUN 21 Creatinine 1.62 H Est GFR ( Amer) 36 L Est GFR (Non-Af Amer) 30 L BUN/Creatinine Ratio 13 Glucose 98 POC Glucose Calculated Osmolality 287 Calcium 8.9 Vancomycin Trough Consult Discharge Plan - Plan Referrals: Aamir Escobedo MD [Primary Care Provider] -
--- NOTE | 2017-06-22 09:12 | Internal Med Progress Note ---
Date of Encounter: 06/22/17 Time of Encounter: 09:10 - Assessment and plan (1) Sepsis Current Visit: Yes Status: Acute Assessment and plan: Likely UTI and HCAP Presented with SIRS criteria positive for fever and tachycardia. Currently normal HR, afebrile Continue Vancomycin, cefepime, levaquin Follow-up blood cultures. Patient not requiring fluids currently. Fever and Tachycardia resolved. Patient will get judicious iv fluid hydration. Poor prognosis, Palliative, discussed goals of care. No aggressive measures, patient currently Comfort care. 06/21 13:[address] head findings with radiologist today over the phone. There is good change the subgleal edema vs hemorrhage is artifact, which would be more consistent with patient's history. Qualifiers: Sepsis type: sepsis due to unspecified organism Qualified Code(s): A41.9 - Sepsis, unspecified organism (2) Atrial flutter with rapid ventricular response Current Visit: No Status: Acute Assessment and plan: - Likely secondary to worsening sepsis, UTI and pneumonia - Now worsening because patient unable to take PO Cardizem and Lopressor home medications - Started on Cardizem drip overnight - If can have PO, will resume home medications. (3) Hospital-acquired pneumonia Current Visit: No Status: Acute Assessment and plan: as above (4) Urinary tract infection Current Visit: No Status: Acute Assessment and plan: as above Qualifiers: Urinary tract infection type: acute cystitis Hematuria presence: without hematuria Qualified Code(s): N30.00 - Acute cystitis without hematuria (5) Chronic anticoagulation Current Visit: No Status: Chronic Assessment and plan: On Xarelto (6) Hypertension Current Visit: No Status: Chronic Assessment and plan: Patient is normotensive but borderline tachycardic, likely from sepsis. She is NPO she is not able to handle PO at this moment because of mental status. Qualifiers: Hypertension type: essential hypertension Qualified Code(s): I10 - Essential (primary) hypertension (7) Hypomagnesemia Current Visit: Yes Status: Acute Assessment and plan: Will replace and recheck tomorrow. (8) DVT prophylaxis Current Visit: Yes Status: Acute Assessment and plan: Xarelto was held for suspicion of bleed. No signs of acute bleed, will discuss with daughters if they would like to resume or hold. - Subjective Interval history: This AM patient is resting comfortably. She wa placed on a cardizem drip overnight for HR getting as high as 130s. After starting drip she is in 90-110 range. - Constitutional Vitals: Temp Pulse Resp BP Pulse Ox 98.8 F 94 20 108/67 96 06/22/17 06:38 06/22/17 06:38 06/22/17 06:38 06/22/17 06:38 06/22/17 06:38 Exam: Somnolent, not in distress. Patient arouses to verbal and some tactile stimuli. Resting peacefully. - Respiratory Respiratory exam: Present: decreased breath sounds, CTAB, rales - Cardiovascular Cardiovascular exam: Present: tachycardia - Extremities Exam Extremities exam: Present: warm, radial pulses palpable and symmetrical. Absent : calf tenderness, cyanotic, pedal edema - Skin Skin exam: Present: dry, warm Internal Medicine: Result - Labs CBC & Chem 7: 06/22/17 05:44 06/22/17 05:44 Labs: Short CBC 06/22/17 Range/Units 05:44 WBC 10.1 D (4.3-11.1) K/mcL Hgb 11.2 L (11.5-15.4) g/dL Hct 35.2 L (35.3-44.9) % Plt Count 324 (140-400) K/mcL Neutrophils # 7.8 (1.6-8.9) K/mcL BMP 06/22/17 05:44 Sodium 137 Potassium 4.2 Chloride 107 Carbon Dioxide 19 L BUN 21 Creatinine 1.62 H Glucose 98 Calcium 8.9 Consult Discharge Plan - Plan Referrals: Aamir Escobedo MD [Primary Care Provider] -
[2017-06-22] MEDS: *HR* Metoprolol 5 MG/5 ML VIAL IVP PRN (10:10)
[2017-06-22] MEDS ORDERED: *HR* LORazepam Oral Conc 2 MG/ML SL PRN (11:31)
[2017-06-22] MEDS ORDERED: OxyCODONE CONC 5 MG/0.25 ML ORAL.SYG SL PRN (11:59)
[2017-06-22] MEDS ORDERED: Vancomycin 1,250 MG in D5% in Water 250 ML IVPB SCH (12:00)
--- NOTE | 2017-06-22 12:29 | Event Note ---
Date of Encounter: 06/22/17 Time of Encounter: 12:00 Met with family - pt has lost IV access. Discussed goals of care. They state she has continued to decline despite 10-11 days of IV antibiotics. Both daughters feel that pt would not to be prolonged in this state. Discussed hospice care at length - and they would like to proceed. Patient appears distressed today - pain and anxiety medications have been adjusted. She may qualify for GIP a couple of days for symptom management. Daughters determining hospice agency of choice and will notify me this afternoon.
[2017-06-22] MEDS: OXYCODONE Oral CONC 10 MG/0.5 ML ORAL.SYG SL PRN ×2 (14:37→18:21)
[2017-06-22] MEDS ORDERED: MetroNIDAZOLE 500 MG/100 ML 500 MG/100 ML BAG IVPB SCH (16:00)
[2017-06-22 19:02] VITALS: BP 90/59
[2017-06-23] MEDS: Ciprofloxacin OPTH Soln 2.5 ML BOTTLE BOTH EYES SCH ×3 (01:24→11:51)
--- NOTE | 2017-06-23 11:14 | Palliative Progress Note ---
Date of Encounter: 06/23/17 Time of Encounter: 09:20 - Assessment and plan (1) CVA (cerebral vascular accident) Current Visit: Yes Status: Acute Assessment and plan: The patient has showed no progression wards recovery. Family now wishes to switch patient over to inpatient hospice. We will do so. No further workup will be done. Qualifiers: CVA mechanism: unspecified Qualified Code(s): I63.9 - Cerebral infarction, unspecified (2) Mental status alteration Current Visit: Yes Status: Acute Assessment and plan: Probably multifactorial in nature certainly the CT scan of the night impacts this, however likely cause is still sepsis secondary to the pneumonia and urinary tract infections. IV has now been lost no further antibiotics can be pursued in the patient's conclude GIP hospice. Qualifiers: Altered mental status type: delirium Qualified Code(s): R41.0 - Disorientation, unspecified (3) Urinary tract infection Current Visit: No Status: Acute Assessment and plan: IV access has been lost. Family does not wish to pursue any further antibiotics anyway. Qualifiers: Urinary tract infection type: acute cystitis Hematuria presence: without hematuria Qualified Code(s): N30.00 - Acute cystitis without hematuria (4) Atrial flutter with rapid ventricular response Current Visit: No Status: Acute Assessment and plan: Comfort measures only at this point. (5) Hospital-acquired pneumonia Current Visit: No Status: Acute - Time Spent With Patient Total time spent is greater than 50% in coordination of care (as documented) at patient's floor/unit and/or counseling patient: - Subjective Interval history: pt is non verbal today per family no improvement since sun wish for hospice trasition today - Constitutional Vitals: Abnormal lab results Hgb 11.2 g/dL (11.5-15.4) L 06/22/17 05:44 Hct 35.2 % (35.3-44.9) L 06/22/17 05:44 RDW 14.8 % (11.5-14.5) H 06/22/17 05:44 Carbon Dioxide 19 mEq/L (23-29) L 06/22/17 05:44 Creatinine 1.62 mg/dL (0.60-1.20) H 06/22/17 05:44 Est GFR ( Amer) 36 (> 60) L 06/22/17 05:44 Est GFR (Non-Af Amer) 30 (> 60) L 06/22/17 05:44 POC Glucose 98 (58-89) H 06/22/17 23:41 Magnesium 1.1 mg/dL (1.6-2.6) L 06/19/17 00:17 Troponin I 0.04 ng/mL (< 0.04) H* 06/20/17 18:05 B-Natriuretic Peptide 141 pg/mL (Less than 100) H 06/19/17 00:17 Serum Total Protein 5.6 g/dL (6.4-8.9) L 06/19/17 00:17 Albumin 3.1 g/dL (3.5-5.7) L 06/19/17 00:17 Procalcitonin 0.18 ng/mL (<=0.10) H 06/19/17 09:57 General appearance: Present: no acute distress - Head Head exam: Present: atraumatic, normal inspection - Eye Eye exam: Absent: normal appearance (Crusting is noted both eyes) - ENT ENT exam: Present: mucous membranes moist - Respiratory Respiratory exam: Present: decreased breath sounds - Cardiovascular Cardiovascular exam: Present: irregular rhythm, tachycardia - GI/Abdominal GI/Abdominal exam: Present: hypoactive bowel sounds, soft. Absent: tenderness - Extremities Exam Extremities exam: Absent: tenderness - Neurological Exam Neurological exam: Present: altered - Skin Skin exam: Present: dry, warm Palliative Quality Palliative Quality: Screen for Code Status: Yes, Screen for Goals of Care: Yes, Screen for Pain: Yes, If Pain Regimen Started, Initiate Bowel Regimen: Yes, Screen for Nausea/Vomitting: Yes Code Status: 06/18/17 17:23 Resuscitation Status: Active [RES] Routine Comment: Resuscitation Status: Full Code 06/20/17 22:17 DNR [Resuscitation Status: Active] [RES] Routine Comment: Resuscitation Status: DNR-Comfort Care - Labs CBC & Chem 7: 06/22/17 05:44 06/22/17 05:44 Labs: Laboratory Results - last 24 hr 06/22/17 06/22/17 06/22/17 11:12 15:54 19:09 POC Glucose 99 H 99 H 93 H 06/22/17 23:41 POC Glucose 98 H Consult Discharge Plan - Plan Referrals: Aamir Escobedo MD [Primary Care Provider] -
[2017-06-23] MEDS: OXYCODONE Oral CONC 10 MG/0.5 ML ORAL.SYG SL PRN (11:52)
--- NOTE | 2017-06-23 12:01 | Discharge Summary ---
Date of Encounter: 06/23/17 Time of Encounter: 11:59 - Discharge Diagnosis (1) CVA (cerebral vascular accident) Priority: Primary Status: Ruled-out Qualifiers: CVA mechanism: unspecified Qualified Code(s): I63.9 - Cerebral infarction, unspecified (2) Hypomagnesemia Priority: Primary Status: Acute (3) Sepsis Priority: Primary Status: Acute Qualifiers: Sepsis type: sepsis due to unspecified organism Qualified Code(s): A41.9 - Sepsis, unspecified organism (4) Atrial flutter with rapid ventricular response Priority: Primary Status: Chronic (5) Hospital-acquired pneumonia Priority: Primary Status: Acute (6) Urinary tract infection Priority: Primary Status: Acute Qualifiers: Urinary tract infection type: acute cystitis Hematuria presence: without hematuria Qualified Code(s): N30.00 - Acute cystitis without hematuria (7) Hypertension Priority: Secondary Status: Chronic Qualifiers: Hypertension type: essential hypertension Qualified Code(s): I10 - Essential (primary) hypertension (8) Paroxysmal atrial fibrillation Priority: Secondary Status: Chronic - Discharge Medications Home Medications: Aspirin [Lo-Dose Aspirin EC] 81 mg PO DAILY 12/06/15 [History] Atorvastatin [Lipitor] 80 mg PO HS 12/06/15 [History] Citalopram [CeleXA] 20 mg PO DAILY 12/06/15 [History] Multivitamin [Multivitamins] 1 each PO DAILY 12/06/15 [History] Rivaroxaban [Xarelto] 20 mg PO DAILY 12/06/15 [History] Donepezil [Aricept] 5 mg PO HS 12/27/16 [History] Omeprazole [PriLOSEC] 40 mg PO DAILY 06/16/17 [History] Acetaminophen [Tylenol] 650 mg PO Q4HR PRN tablet 06/18/17 [Rx] Cefepime HCl [Maxipime] 2,000 mg IVP Q12H vial 06/18/17 [Rx] Levofloxacin 750 MG/150 ML [Levaquin Premix 750mg/150 mL] 750 mg IVPB DAILY #1 bag 06/18/17 [Rx] Metoprolol XL (24 HR) Succ [Toprol Xl] 25 mg PO DAILY tab.er.24h 06/18/17 [Rx] Vancomycin [Vancocin] 1,000 mg IVPB Q24H vial 06/18/17 [Rx] Diltiazem CD (24hr) [Cardizem CD] 180 mg PO BID 06/19/17 [History] Lisinopril [Zestril] 10 mg PO DAILY 06/19/17 [History] hydroCHLOROthiazide [Hydrochlorothiazide] 1 tab PO DAILY 06/19/17 [History] Haloperidol Oral Conc [Haldol] 2 mg SL Q6H #30 mls 06/24/17 [Rx] LORazepam Oral Conc [Ativan Oral Conc] 1 mg PO Q4H 7 Days #30 mls 06/24/17 [Rx] OXYCODONE Oral CONC [Oxycodone Oral Conc] 5 mg PO Q2H 5 Days #30 ml 06/24/17 [Rx ] Allergies/Adverse Reactions: 3 Allergy/AdvReac Type Severity Reaction Status Date / Time celecoxib [From Celebrex] Allergy See Verified 01/30/17 01:45 Comments methocarbamol [From Robaxin] Allergy See Verified 01/30/17 01:45 Comments Tetanus Vaccines and Toxoid Allergy Anaphylaxis Verified 01/30/17 01:45 [Tetanus Vaccines & Toxoid] morphine AdvReac Confusion Verified 01/30/17 01:45 Procedures/tests Complete & Pending: Procedures Performed prior 72 hours Category Date Time Status Head CT without Contrast [CT head/brain wo con] [CT] Cat Scan 06/20/17 17:37 Completed Stat Date of admission: 06/18/17 15:51 Primary care physician: Aamir Escobedo MD Consults: 06/19/17 10:41 Consult to Physical Therapy [CONS] Routine Comment: Evaluate, develop and implement POC Reason for Consult: weakness 06/19/17 10:46 Consult to Occupational Therapy [CONS] Routine Comment: Evaluate, develop and implement POC Reason for Consult: weakness 06/20/17 22:18 Consult to Palliative Care [CONS] Routine Comment: Consulting Provider: [facility]iative [facility] Reason for Consult: Patient has had declining mental status over the past several days with worsening AMS today according to pts. daughters. 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 Pts. daughters are unaware of fall causing head trauma to cause edema/hemorrhage. Pt. does not speak and does not recognize daughters in her presence. Responds/shows alarm to loud noises that occur from the hallway. Discussion w/ pts. two daughters (joint POAs) regarding code status change and their wishes for further imaging (MRI of head) and/or possible transfer of pt. to larger facility for neurological work-up and possible surgical intervention. Daughters stated they want their mother to be made comfortable w/no extraordinary measures. DNRCCA versus DNRCC explained to both and they both voiced understanding and confirmed their wishes of code status change to DNRCC. Pts. daughters wish Palliative Care to take over their mother's care. Call Completed: No Discharging clinician: Eunice Mooney Anticipated date of discharge: 06/23/17 - Patient Status Disposition: Hospice - Medical Facility Condition: Serious Functional capacity at discharge: bed bound Overall status at discharge: patient is not back to baseline - Discharge Instructions Follow Up With: Aamir Escobedo MD [Primary Care Provider] - Hospital course: Ms. Robison is a 89 year old female with the above medical problems including dementia, was transferred from [facility], due to worsening lethargy and somnolence. Patient was initially admitted with UTI and dehydration and gradually developed atrial fibrillation with rapid ventricular response and sepsis. She was treated for possible UTI and pneumonia with broad-spectrum IV antibiotics. Blood cultures remained negative, urine culture was noted to be grossly contaminated. Patient continue to have atrial fibrillation with rapid ventricular response, could not tolerate oral medications, was maintained with IV Lopressor as needed. Patient was noted to have worsening mental status and became more confused and disoriented, not recognizing family members during her hospitalization. CT head was done which showed multifocal subgaleal edema versus hemorrhage. Case was discussed by the [facility] hospitalist with the radiologist and these findings were deemed artifactual. Patient is noted to have poor prognosis, not responding well to antibiotics, with continued tachycardia and encephalopathy. At this time, patient's family desired no further aggressive care. Palliative care was consulted and patient is being transferred to inpatient hospice with comfort care measures. Plan of care was explained to the patient's daughters at bedside, who are in agreement with this plan. - Time Spent with Patient Total time spent providing and/or coordinating discharge services: Greater than 30 minutes (40 min) - Constitutional Vitals: Temp Pulse Resp BP Pulse Ox 100.1 F H 131 28 90/59 91 06/22/17 18:44 06/22/17 18:44 06/22/17 18:44 06/22/17 18:44 06/22/17 18:44 General appearance: Present: A&O X 0 (noted to be startled by touch, cannot answer questions/communicate) - Cardiovascular Cardiovascular exam: Present: RRR, +S1, +S2, tachycardia. Absent: diastolic murmur, gallop, rubs, systolic murmur
[2017-06-24 08:10] LABS: Mycoplasma pneumoniae IgG 0.05 U/L (<=0.09)
== END 2017-06-23 13:15 | disposition hospice, inpatient (51) | DRG 871 ==
LOC: 2ANU 15:51 → SUATTDRO 15:51
PROVIDERS: ADMIT Internal Medicine Cardiovascular Disease; ATTEND Internal Medicine

== ENCOUNTER 2017-06-23 09:59 | Inpatient (IN) ==
[2017-06-23] MEDS ORDERED: Haloperidol Oral Conc 10 MG/5 ML UDC PO PRN (11:03)
[2017-06-23] MEDS ORDERED: OxyCODONE CONC 5 MG/0.25 ML ORAL.SYG SL PRN (11:03)
[2017-06-23] MEDS ORDERED: Atropine Sulfate 1% 40 DROP/2 ML BOTTLE SL PRN (11:03)
[2017-06-23] MEDS ORDERED: Bisacodyl 10 MG RECTAL SUPPOSITORY RC PRN (11:03)
[2017-06-23] MEDS ORDERED: Acetaminophen 650 MG RECTAL SUPP RC PRN (11:03)
[2017-06-23] MEDS ORDERED: Ondansetron ODT 4 MG TAB.RAPDIS SL PRN (11:03)
[2017-06-23] MEDS ORDERED: Albuterol 2.5 MG/3 ML NEBULIZER IH PRN (11:03)
--- NOTE | 2017-06-23 11:19 | Pallative History & Physical ---
Date of Encounter: 06/23/17 Time of Encounter: 09:45 Assessment and Plan (1) Anxiety Status: Acute Well-controlled with current medications will continue sublingual medications. Patient is now general inpatient hospice (2) CVA (cerebral vascular accident) Status: Acute Unclear whether this actually represents a true dural hematoma or not. CT scan was a little inconclusive in regards to that., however the family did not wish to have any further workup done. He case given the overall condition of the patient it is doubtful anything would have been done with it. At this point no further workup will be entertained. Qualifiers: CVA mechanism: unspecified Qualified Code(s): I63.9 - Cerebral infarction, unspecified (3) Generalized pain Status: Acute Sublingual pain medications are written for. General inpatient hospice (4) Goals of care, counseling/discussion Status: Acute DNR comfort care. Patient is now general inpatient hospice plan will be for trying for return home tomorrow. Patient will be Endep today to get all the stuff together for tomorrow, or permitting the patient will be discharged in the morning. At this time a believe the patient is stable enough to transport home, however this may change (5) Mental status alteration Status: Acute Metabolic encephalopathy secondary to either CVA infection or both. This is the patient's terminal diagnosis. Mental status has markedly changed since the patient came in the hospital continues to decline. This therefore the patient is being admitted to general inpatient hospice. Qualifiers: Altered mental status type: delirium Qualified Code(s): R41.0 - Disorientation, unspecified (6) Sepsis Status: Acute Qualifiers: Sepsis type: sepsis due to unspecified organism Qualified Code(s): A41.9 - Sepsis, unspecified organism Internal Medicine - H&P: HPI Admitted From: Intrahospital Transfer Plans for Post Hospital Care: Hospice - Home History of present illness: Ms. Robison is a 89 year old female Patient being transitioned to general inpatient hospice after having been hospitalized for Janeth tract infection, hospital-acquired pneumonia, atrial fibrillation with rapid ventricular response. Since admission the patient is headed down work course in terms of mental status on Thursday approximately 3 days ago extradural fluid collections were noted on a CT scan. It will status has continued to decline to the point the patient is no longer responsive at all except to noxious stimuli. Discussed with family on [place] decided to give it a couple more days of IV antibiotics. IV access was lost yesterday the patient has not responded any case. At this point the family wishes Comfort measures only and the patient transitioned to [facility] hospice. He is not seem to have much in the way of pain but has responded well to medications. We will see transitioned to [facility] hospice today. Patient is unresponsive but does appear comfortable at this time. Past Med Surg Social Fam HX - Past Medical History Medical history: atrial fibrillation, cancer, dementia, hyperlipidemia, hypertension, other Psychiatric history: depression, other - Past Surgical History Surgical History: appendectomy, colectomy, herniorrhaphy, hysterectomy, orthopedic, other - Social History Smoking Status: Never smoker Smokeless Tobacco Status: No Alcohol use: occasionally Drug use: none - Family History Daughter Living Status: Still Living Hx Family Cardiac Disorders: (unknown) Hx Family Respiratory Disorders: (unknown) Hx Family Cancer: (unknown) Hx Family GI Disorders: (unknown) Hx Family Endocrine Disorder: (unknown) Hx Family Neuromuscular Disorders: (unknown) Hx Family Neurologic Disorders: (unknown) Hx Family HEENT Disorders: (unknown) Hx Family Autoimmune Disorders: (unknown) Internal Medicine - H&P: Meds Aspirin [Lo-Dose Aspirin EC] 81 mg PO DAILY 12/06/15 [History] Atorvastatin [Lipitor] 80 mg PO HS 12/06/15 [History] Citalopram [CeleXA] 20 mg PO DAILY 12/06/15 [History] Multivitamin [Multivitamins] 1 each PO DAILY 12/06/15 [History] Rivaroxaban [Xarelto] 20 mg PO DAILY 12/06/15 [History] Donepezil [Aricept] 5 mg PO HS 12/27/16 [History] Omeprazole [PriLOSEC] 40 mg PO DAILY 06/16/17 [History] Acetaminophen [Tylenol] 650 mg PO Q4HR PRN tablet 06/18/17 [Rx] Cefepime HCl [Maxipime] 2,000 mg IVP Q12H vial 06/18/17 [Rx] Levofloxacin 750 MG/150 ML [Levaquin Premix 750mg/150 mL] 750 mg IVPB DAILY #1 bag 06/18/17 [Rx] Metoprolol XL (24 HR) Succ [Toprol Xl] 25 mg PO DAILY tab.er.24h 06/18/17 [Rx] Vancomycin [Vancocin] 1,000 mg IVPB Q24H vial 06/18/17 [Rx] Diltiazem CD (24hr) [Cardizem CD] 180 mg PO BID 06/19/17 [History] Lisinopril [Zestril] 10 mg PO DAILY 06/19/17 [History] hydroCHLOROthiazide [Hydrochlorothiazide] 1 tab PO DAILY 06/19/17 [History] 3 Allergy/AdvReac Type Severity Reaction Status Date / Time celecoxib [From Celebrex] Allergy See Verified 01/30/17 01:45 Comments methocarbamol [From Robaxin] Allergy See Verified 01/30/17 01:45 Comments Tetanus Vaccines and Toxoid Allergy Anaphylaxis Verified 01/30/17 01:45 [Tetanus Vaccines & Toxoid] morphine AdvReac Confusion Verified 01/30/17 01:45 ROS unobtainable: due to mental status Palliative Care-Exam - Head Head Exam: Present: atraumatic, normal inspection - Eye Eye exam: Absent: normal appearance (Sting is noted on both eyes.) - ENT ENT exam: Present: mucous membranes moist - Respiratory Respiratory exam: Present: decreased breath sounds - Cardiovascular Cardiovascular exam: Present: irregular rhythm, tachycardia - GI/Abdominal Exam GI/Abdominal exam: Present: diminished bowel sounds, soft. Absent: tenderness - Catheter Type: Urethral ([place]) - Neurological Exam Neurological exam: Present: altered - Psychiatric Psychiatric exam: Absent: agitated, anxious - Skin Skin exam: Present: dry, warm Palliative Quality Palliative Quality: Screen for Code Status: Yes, Screen for Goals of Care: Yes, Screen for Pain: Yes, If Pain Regimen Started, Initiate Bowel Regimen: Yes, Screen for Nausea/Vomitting: Yes Code Status: 06/23/17 11:03 Resuscitation Status: Active [RES] Stat Resuscitation Status: DNR-Comfort Care Comment:
--- NOTE | 2017-06-23 11:25 | Event Note ---
Date of Encounter: 06/23/17 Time of Encounter: 11:23 Hospice medical orderly certification of terminal illness: Hospice benefit. Start: 06/23/2017 Hospice benefit. In: +90 days Palliative performance scale: 20 percent History: Patient with history of hospital-acquired pneumonia urinary tract infection A. fib with RVR and Airola vent which may very well be a small epidural hematoma for which the family did not wish to have the patient further evaluated. I will status is continued to decline despite aggressive use of antibiotics as metabolic encephalopathy which has made her unable to speak, as well as taken any kind of nutrition. At this point the IVs have been lost and family does not wish to pursue any further treatment of the infections therefore I believe that-These findings support a life expectancy of 6 months or less I attest that I have compose the above narrative based on my review of the patient's medical records, and or on my examination of the patient. Aamir Arrieta M.D. [employer] medical laboratory technicians. [facility]
[2017-06-23] MEDS: Ciprofloxacin OPTH Soln 2.5 ML BOTTLE BOTH EYES SCH ×3 (12:00→23:50)
[2017-06-23] MEDS: *HR* LORazepam Oral Conc 2 MG/ML SL PRN ×2 (15:46→23:53)
[2017-06-23] MEDS: OXYCODONE Oral CONC 10 MG/0.5 ML ORAL.SYG SL PRN (17:07)
[2017-06-24] MEDS: Ciprofloxacin OPTH Soln 2.5 ML BOTTLE BOTH EYES SCH ×4 (04:14→20:25)
--- NOTE | 2017-06-24 07:15 | Palliative Progress Note ---
Date of Encounter: 06/24/17 Time of Encounter: 07:05 - Assessment and plan (1) Anxiety Current Visit: No Status: Acute Assessment and plan: Well-controlled with current medications will continue sublingual medications. Patient is now general inpatient hospice (2) CVA (cerebral vascular accident) Current Visit: No Status: Ruled-out Assessment and plan: Unclear whether this actually represents a true dural hematoma or not. CT scan was a little inconclusive in regards to that., however the family did not wish to have any further workup done. He case given the overall condition of the patient it is doubtful anything would have been done with it. At this point no further workup will be entertained. Qualifiers: CVA mechanism: unspecified Qualified Code(s): I63.9 - Cerebral infarction, unspecified (3) Generalized pain Current Visit: No Status: Acute Assessment and plan: Sublingual pain medications are written for. General inpatient hospice Seems to be very little generalized pain at this point a meds are written for. (4) Goals of care, counseling/discussion Current Visit: No Status: Acute Assessment and plan: DNR comfort care. Patient is now general inpatient hospice plan will be for trying for return home tomorrow. Patient will be general inpatient today to get all the stuff together for tomorrow, or permitting the patient will be discharged in the morning. At this time a believe the patient is stable enough to transport home, however this may change Weather makes transport home rehabilitation status at this time. I do not believe the patient is stable enough kind of transport the weather would require. We will plan for discharge tomorrow due to patient's safety concerns. (5) Mental status alteration Current Visit: No Status: Acute Assessment and plan: Metabolic encephalopathy secondary to either CVA infection or both. This is the patient's terminal diagnosis. Mental status has markedly changed since the patient came in the hospital continues to decline. This therefore the patient is being admitted to general inpatient hospice. Qualifiers: Altered mental status type: delirium Qualified Code(s): R41.0 - Disorientation, unspecified (6) Sepsis Current Visit: No Status: Acute Assessment and plan: Patient is now running what appears to be terminal fevers. I believe the patient is down to hours to days maybe weeks. Further aggressive care is being undertaken. Patient is overall comfortable but very tachycardic her pressure is somewhat better today with the patient is running terminal fevers at this point in time and due to the weather believe the transport home today is a good idea in terms of overall patient's safety. Plan on delaying discharge until tomorrow. Qualifiers: Sepsis type: sepsis due to unspecified organism Qualified Code(s): A41.9 - Sepsis, unspecified organism - Time Spent With Patient Total time spent is greater than 50% in coordination of care (as documented) at patient's floor/unit and/or counseling patient: - Subjective Interval history: non responsive to voice per ns no problems overnight bp is better - Constitutional General appearance: Present: no acute distress - Head Head exam: Present: atraumatic, normal inspection - Eye Eye exam: Present: normal appearance (Less crusty) - ENT ENT exam: Present: mucous membranes dry - Respiratory Respiratory exam: Present: decreased breath sounds - Cardiovascular Cardiovascular exam: Present: irregular rhythm, tachycardia - GI/Abdominal GI/Abdominal exam: Present: normal bowel sounds, soft. Absent: tenderness - Extremities Exam Extremities exam: Absent: tenderness - Psychiatric Psychiatric exam: Absent: agitated, anxious - Skin Skin exam: Present: dry, warm Palliative Quality Palliative Quality: Screen for Code Status: Yes, Screen for Goals of Care: Yes, Screen for Pain: Yes, If Pain Regimen Started, Initiate Bowel Regimen: Yes, Screen for Nausea/Vomitting: Yes Code Status: 06/23/17 11:03 Resuscitation Status: Active [RES] Stat Comment: Resuscitation Status: DNR-Comfort Care Consult Discharge Plan - Plan Referrals: Aamir Escobedo MD [Primary Care Provider] -
[2017-06-24] MEDS: OXYCODONE Oral CONC 10 MG/0.5 ML ORAL.SYG SL PRN ×2 (11:52→17:51)
[2017-06-25] MEDS: OXYCODONE Oral CONC 10 MG/0.5 ML ORAL.SYG SL PRN ×2 (01:44→10:48)
[2017-06-25] MEDS: Ciprofloxacin OPTH Soln 2.5 ML BOTTLE BOTH EYES SCH (05:38)
[2017-06-25 08:31] VITALS: BP 79/51
--- NOTE | 2017-06-25 10:16 | Discharge Summary ---
Date of Encounter: 06/25/17 Time of Encounter: 07:25 - Discharge Diagnosis (1) Sepsis Priority: Primary Status: Acute Qualifiers: Sepsis type: sepsis due to unspecified organism Qualified Code(s): A41.9 - Sepsis, unspecified organism (2) Anxiety Priority: Secondary Status: Acute (3) CVA (cerebral vascular accident) Priority: Secondary Status: Ruled-out Qualifiers: CVA mechanism: unspecified Qualified Code(s): I63.9 - Cerebral infarction, unspecified (4) Generalized pain Priority: Secondary Status: Acute (5) Goals of care, counseling/discussion Priority: Secondary Status: Acute (6) Mental status alteration Priority: Primary Status: Acute Qualifiers: Altered mental status type: delirium Qualified Code(s): R41.0 - Disorientation, unspecified - Discharge Medications Prescriptions: Haloperidol Oral Conc [Haldol] 2 mg SL Q6H #30 mls LORazepam Oral Conc [Ativan Oral Conc] 1 mg PO Q4H 7 Days #30 mls OXYCODONE Oral CONC [Oxycodone Oral Conc] 5 mg PO Q2H 5 Days #30 ml Home Medications: Aspirin [Lo-Dose Aspirin EC] 81 mg PO DAILY 12/06/15 [History] Atorvastatin [Lipitor] 80 mg PO HS 12/06/15 [History] Citalopram [CeleXA] 20 mg PO DAILY 12/06/15 [History] Multivitamin [Multivitamins] 1 each PO DAILY 12/06/15 [History] Rivaroxaban [Xarelto] 20 mg PO DAILY 12/06/15 [History] Donepezil [Aricept] 5 mg PO HS 12/27/16 [History] Omeprazole [PriLOSEC] 40 mg PO DAILY 06/16/17 [History] Acetaminophen [Tylenol] 650 mg PO Q4HR PRN tablet 06/18/17 [Rx] Cefepime HCl [Maxipime] 2,000 mg IVP Q12H vial 06/18/17 [Rx] Levofloxacin 750 MG/150 ML [Levaquin Premix 750mg/150 mL] 750 mg IVPB DAILY #1 bag 06/18/17 [Rx] Metoprolol XL (24 HR) Succ [Toprol Xl] 25 mg PO DAILY tab.er.24h 06/18/17 [Rx] Vancomycin [Vancocin] 1,000 mg IVPB Q24H vial 06/18/17 [Rx] Diltiazem CD (24hr) [Cardizem CD] 180 mg PO BID 06/19/17 [History] Lisinopril [Zestril] 10 mg PO DAILY 06/19/17 [History] hydroCHLOROthiazide [Hydrochlorothiazide] 1 tab PO DAILY 06/19/17 [History] Haloperidol Oral Conc [Haldol] 2 mg SL Q6H #30 mls 06/24/17 [Rx] LORazepam Oral Conc [Ativan Oral Conc] 1 mg PO Q4H 7 Days #30 mls 06/24/17 [Rx] OXYCODONE Oral CONC [Oxycodone Oral Conc] 5 mg PO Q2H 5 Days #30 ml 06/24/17 [Rx ] Allergies/Adverse Reactions: 3 Allergy/AdvReac Type Severity Reaction Status Date / Time celecoxib [From Celebrex] Allergy See Verified 01/30/17 01:45 Comments methocarbamol [From Robaxin] Allergy See Verified 01/30/17 01:45 Comments Tetanus Vaccines and Toxoid Allergy Anaphylaxis Verified 01/30/17 01:45 [Tetanus Vaccines & Toxoid] morphine AdvReac Confusion Verified 01/30/17 01:45 Labs on day of discharge: Labs from last 24 hours 06/24/17 07:09 POC Glucose 86 Internal Medicine - DS: Prov Date of admission: 06/23/17 14:22 Primary care physician: Aamir Escobedo MD Consults: 06/23/17 11:03 Consult to Palliative Care [CONS] Routine Comment: Consulting Provider: Palliative [facility] [place] Reason for Consult: coverage Time Notified: 11:07 Call Completed: Yes Discharging clinician: Aamir Arrieta Anticipated date of discharge: 06/25/17 - Patient Status Disposition: Hospice - Home Condition: Serious Functional capacity at discharge: bed bound Overall status at discharge: patient is not back to baseline - Discharge Instructions Follow Up With: Aamir Escobedo MD [Primary Care Provider] - (GIP Patient, no follow up needed ) - Diet and Activity Activity: ambulate only with your walker (only if ok with hospice), wear oxygen at all times Diet: advance to your usual diet (if possible) - Hospital Course Hospital course: Ms. Robison is a 89 year old female Time spent discussing smoking cessation with patient: 3 to 10 minutes - Time Spent with Patient Total time spent providing and/or coordinating discharge services: Greater than 30 minutes Internal Medicine - DS: Exam - Constitutional Vitals: Vital Signs Temp Pulse Resp BP Pulse Ox 06/25/17 08:28 100.6 F H 155 22 79/51 99 06/24/17 19:31 101.2 F H 150 18 109/75 97 Intake and Output 06/24/17 06/25/17 06/25/17 23:59 07:59 15:59 Output Total 450 / 450 Balance -450 / -450 Output: Catheter 450 / 450 Other: Meal NPO Weight 57.7 kg 57.5 kg Patient Weight 06/25/17 23:59 Weight 57.5 kg General appearance: no acute distress - Head Head exam: Present: atraumatic, normal inspection - Respiratory Respiratory exam: Present: decreased breath sounds - Cardiovascular Cardiovascular exam: Present: irregular rhythm, tachycardia - GI/Abdominal GI/Abdominal exam: Present: hypoactive bowel sounds. Absent: soft, tenderness - Extremities Exam Extremities exam: Absent: pedal edema, tenderness - Neurological Exam Neurological exam: Present: altered - Psychiatric Psychiatric exam: Absent: agitated, anxious - Skin Skin exam: Present: dry, warm
[2017-06-25] MEDS: *HR* LORazepam Oral Conc 2 MG/ML SL PRN (12:18)
== END 2017-06-25 12:37 | disposition hospice, home (50) | DRG 871 ==
LOC: 2ANU 14:22
PROVIDERS: ADMIT Family Medicine Hospice and Palliative Medicine; ATTEND Family Medicine Hospice and Palliative Medicine